=== PATIENT | female | born 1950 | race Two or more races ===

== ENCOUNTER 2023-10-09 09:59 | Emergency (ER) | payer OTHER ==
[~2023-10-09] VITALS: Ht 157.5 cm; Wt 60.8 kg
[~2023-10-09 09:59] MED LIST: CALTRATE 600+D1 EAC1
[2023-10-09] MEDS ORDERED: GLUMETZA500 MG (10:04)
[2023-10-09] MEDS ORDERED: KETOROLAC TROMETHAMINE 30 MG VIAL IM STA (10:31)
[2023-10-09 10:48] LABS: HEMATOCRIT 39.3 % (36.0-45.00); MEAN CORPUSCULAR HEMOGLOBIN 29.5 pg (27.00-32.0); MEAN CORPUSCULAR HGB CONC 33.2 g/dl (32.0-36.0); PLATELET COUNT 268 K/uL (150-450); RED BLOOD COUNT 4.42 M/uL (4.00-6.00); RED CELL DISTRIBUTION WIDTH 13.9 % (11.5-14.5)
[2023-10-09 10:49] LABS: URINE APPEARANCE Clear; URINE BILIRRUBIN Negative (NEGATIVE); URINE BLOOD Negative; URINE COLOR Yellow; URINE GLUCOSE Negative (NEGATIVE); URINE LEUKOCYTE Small; URINE NITRATE Negative; URINE PROTEIN Negative (NEGATIVE); URINE UROBILINOGEN 0.2 E.U./dl
[2023-10-09 10:50] LABS: URINE BACTERIA 12.5 uL (0.0-1933); URINE EPITHELIAL CELLS 7.4 uL (0.0-38.8); URINE RBC 4.8 uL (0.0-20.8); URINE WBC 38.8 uL (0.0-23.2)
[2023-10-09 11:08] LABS: CALCIUM 9.8 mg/dL (8.5-10.1); CREATININE SERUM 0.89 mg/dL (0.55-1.02); GFR 62.52; POTASSIUM 4.26 mEq/L (3.5-5.1)
== END 2023-10-09 11:45 | disposition home or self-care (01) ==
LOC: ER 10:00
PROVIDERS: General Practice
DX: M54.89 Other dorsalgia (principal); E11.9 Type 2 diabetes mellitus without complications; Z79.84 Long term (current) use of oral hypoglycemic drugs